=== PATIENT | male | born 1960 | race Caucasian/White ===

== ENCOUNTER → 2017-08-09 06:36 | Outpatient (CLI) | payer SELFPAY ==
--- NOTE | 2017-08-10 08:52 | PFTCOMP ---
COMPLETE PULMONARY FUNCTION TEST INTERPRETATION Brief HPI: Patient is a 57 year old male, currently under the care of Dr. Bloom, who presents to [facility] for complete pulmonary function tests secondary to diagnosis of asthma. Respiratory therapist reports good effort and reproducible results. Interpretation: Forced expiration spirometry shows a moderately-severe large airways obstructive ventilatory defect with an FEV1 of 55 % predicted. There is no significant bronchodilator response by ATS criteria. Spirograms are of good quality and plateau slowly, indicating slowly emptying areas of the lungs. The respiratory flow volume loop shows decreased expiratory flow rates at all lung volumes consistent with airway obstruction. Lung volumes by body plethysmography show a normal total lung capacity at 6.83 L, 89 % predicted. All other lung volumes are within normal limits. Diffusion capacity by carbon monoxide is normal at 104 % predicted. The airway resistance is elevated. Compared to previous pulmonary function tests from 08/11/2016, there has been a significant change in TLC, decreased by 12%. Impression: Irreversible moderately severe large airways obstructive ventilatory defect with preserved diffusion capacity in a pattern consistent with chronic bronchitis.
--- NOTE | 2017-08-10 08:55 | PFTCOMP_ITS ---
COMPLETE PULMONARY FUNCTION TEST INTERPRETATION Brief HPI: Patient is a 57 year old male, currently under the care of Dr. Bloom, who presents to [facility] for complete pulmonary function tests secondary to diagnosis of asthma. Respiratory therapist reports good effort and reproducible results. Interpretation: Forced expiration spirometry shows a moderately-severe large airways obstructive ventilatory defect with an FEV1 of 55 % predicted. There is no significant bronchodilator response by ATS criteria. Spirograms are of good quality and plateau slowly, indicating slowly emptying areas of the lungs. The respiratory flow volume loop shows decreased expiratory flow rates at all lung volumes consistent with airway obstruction. Lung volumes by body plethysmography show a normal total lung capacity at 6.83 L , 89 % predicted. All other lung volumes are within normal limits. Diffusion capacity by carbon monoxide is normal at 104 % predicted. The airway resistance is elevated. Compared to previous pulmonary function tests from 08/11/2016, there has been a significant change in TLC, decreased by 12%. Impression: Irreversible moderately severe large airways obstructive ventilatory defect with preserved diffusion capacity in a pattern consistent with chronic bronchitis.
== END ==
PROVIDERS: Family Provider Family Medicine; PCP Family Medicine; Visit Provider Nurse Practitioner Acute Care
DX: J45.909 Unspecified asthma, uncomplicated (principal)
CPT/HCPCS: 94060; 94726; 94729

== ENCOUNTER → 2019-03-27 08:27 | Outpatient (CLI) | payer OTHER, SELFPAY ==
[2018-06-27 07:06] VITALS: BMI 27.1
[2019-03-27 10:43] LABS: Absolute Lymphocyte Count 1.37 X10^3/uL (0.83-4.51); Absolute Neutrophil Count 2.7 X10^3/uL (2.0-7.7); Basophil# 0.03 X10^3/uL; Basophil% 0.6 % (0-1); Eosinophil# 0.33 X10^3/uL; Eosinophils% 6.5 % (0-5); Hematocrit 45.5 % (40-54); Hemoglobin 15.6 g/dL (13.0-16.5); Lymphocyte # 1.37 X10^3/ul (4.0); Mean Corp Hgb Conc 34.3 g/dL (32-36); Mean Corpuscular Hgb 30.6 pg (27.0-32.0); Mean Corpuscular Volume 89.4 fL (80-94); Mean Platelet Vol. 9.3 fl (6.2-12.0); Monocyte% 11.8 % (0-10); NRBC Flagged by Analyzer 0 % (0-5); Neutrophil # 2.73 X10^3/uL (2.7-7.7); Neutrophil % 53.9 % (47-70); Platelet Count 259 K/mm3 (150-450); RBC Distribution Width CV 11.5 % (11.6-14.6); RBC Distribution Width SD 37.7 fl (35.1-43.9); Red Blood Count 5.09 M/mm3 (4.6-6.2); White Blood Count 5.1 K/mm3 (4.4-11.0)
[2019-03-27 10:59] LABS: AST(SGOT) 23 U/L (15-37); Alanine Aminotransfer ALT/SGPT 37 U/L (16-61); Albumin, Serum 4.1 g/dL (3.2-5.0); Alkaline Phosphatase 84 U/L (45-117); Anion Gap 6 (5-15); BUN 15 mg/dL (7-18); BUN/Creat Ratio 14.2 RATIO (10-20); Bilirubin, Direct 0.17 mg/dL (0.00-0.30); Calcium,Total 9.3 mg/dL (8.5-10.1); Chloride 103 mmol/L (98-107); Creatinine, Serum 1.06 mg/dL (0.70-1.30); EST Glomerular Filtration Rate 76 mL/min (>60); Est Glom Filt Rate - Afr Amer 92 mL/min (>60); Globulin 3.9 g/dL (2.2-4.2); Glucose 100 mg/dL (74-106); Sodium Level 137 mmol/L (136-145)
[2019-03-27 11:46] LABS: Hepatitis B Surface Antibody Non-Reactive; Hepatitis B Surface Antigen Non-Reactive (Nonreactive); Hepatitis C Antibody Non-Reactive (Nonreactive)
[2019-03-29 20:07] LABS: QNTFERON TB Mitogen Value > 10.00 IU/mL (.); QNTFERON TB Nil Value 0.01 IU/mL (.); QNTFERON TB1+ Ag Value 0.03 IU/mL (.); QNTFERON TB2+ Ag Value 0.01 IU/mL (.)
[2019-03-29 21:18] LABS: Hepatitis B Core AB IgM Negative (Negative); QNTIFERON TB Positive Criteria Negative (Negative)
== END ==
PROVIDERS: Family Provider Family Medicine; PCP Family Medicine; Referring Provider Dermatology; Visit Provider Dermatology
DX: L40.0 Psoriasis vulgaris (principal); Z79.899 Other long term (current) drug therapy; L20.89 Other atopic dermatitis
CPT/HCPCS: 36415; 80048; 80076; 85025; 86480; 86705; 86706; 86803; 87340

== ENCOUNTER 2019-04-16 18:30 | Outpatient (RCR) | payer OTHER, SELFPAY ==
[2018-06-27 07:06] VITALS: BMI 27.1
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
--- NOTE | 2019-08-24 07:39 | HP.PTDCSUM ---
It has been my pleasure to treat EYAL RIZVI referred by Placido Lowry III, MD, with the diagnosis of COMPRESSION FRACRURE OF FIRST VERTEBRA for a total of 2 visit(s). Discharge Date: Please see the following information for a summary of their discharge status. Subjective: Patient stated back is better with ex's Bilateral Back Pain Intensity (Out of 10): 4 % Improvement: 75 Objective/Function: ROSSI TX WELL DID WELL WITH EX'S PROVIDE HANDOUT Goal 1:: Patient to be Independant with HEP Goal 2:: Patient improve posture/body mechanics for job demands. Goal 3:: Patient to decrease lumbar pain by 50% or > to improve function. Goal 4:: Patient to improve lumbar ROM for function of recovery Goal 5:: Patient to improve back owestrey score by 5 points or > to improve QOL. Goal 6:: D/C TO [facility] Plan: WILL DO EX'S ON OWN AT GYM. PT INTERVENTIONS DLS,POSTURAL EX'S,LE FLEXABLITY If there are questions or concerns regarding this patient's physical therapy, please feel free to call me at [phone]. Thank you for the referral of this patient. Sincerely, Dominick Kay, PT, Cert MDT, OCS
== END 2019-04-16 19:00 | disposition home or self-care (01) ==
LOC: PT 18:30
PROVIDERS: Family Provider Family Medicine; PCP Family Medicine; Referring Provider Family Medicine; Visit Provider Family Medicine
DX: S32.010D Wedge compression fracture of first lumbar vertebra, subsequent encounter for fracture with routine healing (principal)
CPT/HCPCS: 97110; 97162

== ENCOUNTER 2019-05-16 10:48 | Emergency (ER) | payer OTHER, SELFPAY ==
[2018-06-27 07:06] VITALS: BMI 27.1
[2019-05-16 10:50] VITALS: BP 137/98; PULSE 72; RESP 17; TEMP 36.7; O2SAT 98; BMI 28.3
--- NOTE | 2019-05-16 11:27 | ED.VISSUMM ---
- ER Visit Summary Date of Service: 05/16/19 Chief Complaint: Left thumb laceration injury History of Present Illness: The patient is a 59 M hand dominant. States his tetanus status is up-to-date. Patient was at work and a large pipe fell on his left thumb causing it to be lacerated and injured. Patient denies any other injuries. Physical Examination: Middle-aged male no acute distress vital signs stable afebrile. HEENT exam unremarkable atraumatic. Lungs clear to auscultation. Heart regular rhythm no murmur. Abdomen soft nontender. Extremities moves all 4. Neurovascular intact. Specifically left hand left thumb there is a laceration notes at least 4 cm on the dorsum of his left proximal thumb just proximal to his nail. The thumb is neurovascularly intact. He is able to do flexion extension. He has normal touch sensation distally. There is blood and small amount of actual bleeding. No gross bony deformities. The rest of the hand is nontender. Without any signs of trauma. With normal range of motion intact sensation. Test Results: Left thumb x-ray 2 views read by myself and the radiologist showing a nondisplaced fracture of the distal phalanx. Emergency Department Course and Treatment: Procedure note: Left thumb laceration. Digital block using Xylocaine. Once proper anesthetic was obtained. Wound was washed with soap and water, Shur-Clens and irrigated. It was explored. Then closed using 4-0 Ethilon simple interrupted sutures times #5. Patient tolerated procedure well. Proper hemostasis and wound closure was obtained. Patient has an open fracture will be placed on Keflex 4 times a day for 1 week. Ice and elevate. Keep clean. Sutures are open and no less than 10 no more than 14 days. Follow-up with of orthopedics. Treatment Plan: Wound care. Suture removal in 10 days. Return if any problems. Keflex 1 pill 4 times a day for 10 days. Disposition: dc Impression: Left thumb injury with 4 cm laceration with ER repair Left thumb distal phalanx open fracture Worker's Comp. injury This note was generated with [employer] dictation software. It may contain incorrect words, spelling, and punctuation that were not noted in review of the chart prior to signing ED Disposition - Plan for ED Patient: Referrals: Placido Lowry III, MD [Primary Care Provider] -
--- NOTE | 2019-05-16 11:30 | RAD_ITS ---
STUDY: X-RAY - LEFT HAND, ATTENTION LEFT THUMB. REASON FOR EXAM: Male, 59 years old. Pain following injury. TECHNIQUE: 3 view(s) of the finger were obtained. COMPARISON: None. FINDINGS: Normal metacarpal head. Normal metacarpophalangeal joint. Normal proximal phalanx. Nondisplaced, fracture of the distal phalanx. Normal distal interphalangeal joint. RAD/Finger(s) Min 2 Views IMPRESSION: Nondisplaced, fracture of the distal phalanx with overlying soft tissue injury. Electronically Signed: Phillip Swenson, at 12:12 EST , Service support ,
[2019-05-16] MEDS: Cephalexin 250 MG Capsule 500 MG PO (13:04)
--- NOTE | 2019-05-16 13:04 | ED.DEP ---
ED Disposition - Plan for ED Patient: Disposition: Home or Assisted Living Instructions: FRACTURE, Finger (Open) Prescriptions: Cephalexin [Keflex] 500 mg PO Q6 #28 cap Prescription Printed Referrals: Tonia Mckee DO [STAFF PHYSICIAN] - As soon as possible Additional Instructions: Keep thumb dry and clean. Clean daily with soap and water or peroxide and water. Apply antibiotic ointment. Stitches out in 10 to 14 days. Keep the splint on as much as possible. You have a open fracture of your left thumb you need to see an orthopedic surgeon for this and follow-up. Keflex antibiotic 1 pill 4 times a day for 7 days. Ice and elevate. Tylenol and Motrin for pain.
== END 2019-05-16 13:36 | disposition home or self-care (01) ==
PROVIDERS: Emergency Provider Emergency Medicine; Family Provider Family Medicine; PCP Family Medicine
DX: S62.525B Nondisplaced fracture of distal phalanx of left thumb, initial encounter for open fracture (principal); J45.909 Unspecified asthma, uncomplicated; F41.9 Anxiety disorder, unspecified; Z79.51 Long term (current) use of inhaled steroids; Z79.899 Other long term (current) drug therapy; W22.8XXA Striking against or struck by other objects, initial encounter; Y93.89 Activity, other specified; Y92.89 Other specified places as the place of occurrence of the external cause; Y99.0 Civilian activity done for income or pay
CPT/HCPCS: 12002; 11750; 11760; 73140; 99284

== ENCOUNTER → 2019-05-28 09:01 | Outpatient (CLI) | payer OTHER, SELFPAY ==
[2019-05-16 10:50] VITALS: BMI 28.3
--- NOTE | 2019-05-28 09:02 | RAD_ITS ---
STUDY: X-RAY - LEFT HAND, ATTENTION FIRST FINGER REASON FOR EXAM: Male, 59 years old. Follow-up of fracture of distal phalanx of first finger. TECHNIQUE: 3 view(s) of the finger were obtained. COMPARISON: None. FINDINGS: Normal metacarpal head. Normal metacarpophalangeal joint. Normal proximal phalanx. Normal middle phalanx. Comminuted minimally displaced fracture of the distal phalanx of the first digit, relatively unchanged from prior study. No complications identified. Normal proximal interphalangeal joint. Normal distal interphalangeal joint. RAD/Finger(s) Min 2 Views IMPRESSION: Stable uncomplicated distal phalangeal fracture as described. Electronically Signed: Ian Bertrand MD at 14:11 EST , Service support ,
== END ==
PROVIDERS: Family Provider Family Medicine; PCP Family Medicine; Referring Provider Orthopaedic Surgery; Visit Provider Orthopaedic Surgery
DX: S69.92XA Unspecified injury of left wrist, hand and finger(s), initial encounter (principal)
CPT/HCPCS: 73140

== ENCOUNTER → 2019-06-20 08:10 | Outpatient (CLI) | payer OTHER, SELFPAY ==
[2019-05-28 09:30] VITALS: BMI 28.3
--- NOTE | 2019-06-20 08:11 | RAD_ITS ---
STUDY: X-RAY - LEFT HAND, ATTENTION FIRST FINGER REASON FOR EXAM: Male, 59 years old. FX, PAIN TECHNIQUE: 3 view(s) of the finger were obtained. COMPARISON: None. FINDINGS: Comminuted fractures of the first distal phalanx. No distracted fragments or angulation. Grossly normal bone contour. Mild degenerative changes of the first interphalangeal and metacarpophalangeal joints. Diffuse soft tissue swelling. RAD/Finger(s) Min 2 Views IMPRESSION: Comminuted nondisplaced fractures of the entire distal phalanx of the thumb. Electronically Signed: Jhony Jamison MD at 19:39 EST , Service support ,
== END ==
PROVIDERS: Family Provider Family Medicine; PCP Family Medicine; Referring Provider Orthopaedic Surgery; Visit Provider Orthopaedic Surgery
DX: S69.92XA Unspecified injury of left wrist, hand and finger(s), initial encounter (principal)
CPT/HCPCS: 73140

== ENCOUNTER → 2020-12-24 08:25 | Outpatient (CLI) | payer BC, SELFPAY ==
[2019-06-20 08:25] VITALS: BMI 28.3
[2020-12-24 10:16] LABS: Absolute Lymphocyte Count 1.37 X10^3/uL (0.83-4.51); Absolute Neutrophil Count 2.2 X10^3/uL (2.0-7.7); Basophil# 0.03 X10^3/uL; Basophil% 0.7 % (0-1); Eosinophil# 0.32 X10^3/uL; Eosinophils% 7.1 % (0-5); Hematocrit 41.5 % (40-54); Lymphocyte # 1.37 X10^3/ul (0.83-4.51); Lymphocyte % 30.6 % (19-41); Mean Corp Hgb Conc 33.7 g/dL (32-36); Mean Corpuscular Hgb 30.7 pg (27.0-32.0); Mean Platelet Vol. 9.3 fl (6.2-12.0); Monocyte# 0.56 X10^3/uL; Monocyte% 12.5 % (0-10); NRBC Flagged by Analyzer 0 % (0-5); Neutrophil # 2.19 X10^3/uL (2.7-7.7); Neutrophil % 48.9 % (47-70); Platelet Count 265 K/mm3 (150-450); RBC Distribution Width CV 12.3 % (11.6-14.6); RBC Distribution Width SD 41.1 fl (35.1-43.9); Red Blood Count 4.56 M/mm3 (4.6-6.2); White Blood Count 4.5 K/mm3 (4.4-11.0)
[2020-12-24 10:51] LABS: Anion Gap 5 (5-15); BUN 16 mg/dL (7-18); Calcium,Total 8.9 mg/dL (8.5-10.1); Chloride 104 mmol/L (98-107); EST Glomerular Filtration Rate 81 mL/min (>60); Est Glom Filt Rate - Afr Amer 98 mL/min (>60); Glucose 103 mg/dL (74-106); Potassium 4.3 mmol/L (3.5-5.1); Sodium Level 138 mmol/L (136-145)
[2020-12-27 20:07] LABS: QNTFERON TB Mitogen Value > 10.00 IU/mL (.); QNTFERON TB Nil Value 0.01 IU/mL (.); QNTFERON TB1+ Ag Value 0.03 IU/mL (.); QNTFERON TB2+ Ag Value 0.02 IU/mL (.)
[2020-12-28 08:05] LABS: QNTIFERON TB Positive Criteria Negative (Negative)
== END ==
PROVIDERS: PCP Family Medicine; Referring Provider Dermatology; Visit Provider Dermatology
DX: L40.0 Psoriasis vulgaris (principal); Z79.899 Other long term (current) drug therapy
CPT/HCPCS: 36415; 80048; 85025; 86480

== ENCOUNTER → 2023-03-08 | Outpatient (CLI) | payer BC, SELFPAY ==
[2023-03-08 10:07] LABS: Absolute Lymphocyte Count 1.92 X10^3/uL (0.83-4.51); Absolute Neutrophil Count 1.9 X10^3/uL (2.0-7.7); Basophil# 0.03 X10^3/uL; Basophil% 0.7 % (0-1); Eosinophil# 0.23 X10^3/uL; Hematocrit 40.8 % (40-54); Hemoglobin 13.8 g/dL (13.0-16.5); Lymphocyte # 1.92 X10^3/ul (0.83-4.51); Lymphocyte % 41.7 % (19-41); Mean Corp Hgb Conc 33.8 g/dL (32-36); Mean Corpuscular Hgb 30.9 pg (27.0-32.0); Mean Corpuscular Volume 91.5 fL (80-94); Mean Platelet Vol. 9.6 fl (6.2-12.0); Monocyte# 0.53 X10^3/uL; Monocyte% 11.5 % (0-10); NRBC Flagged by Analyzer 0 % (0-5); Neutrophil # 1.87 X10^3/uL (2.7-7.7); Neutrophil % 40.7 % (47-70); Platelet Count 276 K/mm3 (150-450); RBC Distribution Width CV 12.2 % (11.6-14.6); RBC Distribution Width SD 40.8 fl (35.1-43.9); Red Blood Count 4.46 M/mm3 (4.6-6.2); White Blood Count 4.6 K/mm3 (4.4-11.0)
[2023-03-08 10:42] LABS: AST(SGOT) 18 U/L (15-37); Alanine Aminotransfer ALT/SGPT 30 U/L (16-61); Albumin, Serum 3.9 g/dL (3.2-5.0); Alkaline Phosphatase 62 U/L (45-117); Anion Gap 3 (5-15); BUN 18 mg/dL (7-18); BUN/Creat Ratio 18.3 RATIO (10-20); Bilirubin, Direct 0.14 mg/dL (0.00-0.30); Calcium,Total 8.8 mg/dL (8.5-10.1); Chloride 103 mmol/L (98-107); Cholesterol 235 mg/dL (200); Creatinine, Serum 0.98 mg/dL (0.70-1.30); EST Glomerular Filtration Rate 82 mL/min (>60); Est Glom Filt Rate - Afr Amer 99 mL/min (>60); Globulin 3.3 g/dL (2.2-4.2); Glucose 104 mg/dL (74-106); High Density Lipoprotein 65 mg/dL; Potassium 4.3 mmol/L (3.5-5.1); Protein, Total 7.2 g/dL (6.4-8.2); Sodium Level 136 mmol/L (136-145); Triglycerides 130 mg/dL; Very Low Density Lipoprotein 26 mg/dL (5-40)
[2023-03-08 11:23] LABS: Hepatitis C Antibody Non-Reactive (Nonreactive)
== END | disposition home or self-care (01) ==
LOC: MTLAB 07:03
PROVIDERS: PCP Family Medicine; Referring Provider Dermatology; Visit Provider Dermatology
DX: L20.89 Other atopic dermatitis (principal); Z79.899 Other long term (current) drug therapy
CPT/HCPCS: 36415; 80048; 80061; 80076; 85025; 86803

== ENCOUNTER → 2025-04-16 | Outpatient (CLI) | payer SELFPAY ==
[2025-04-18 18:08] LABS: QNTFERON TB Mitogen Value > 10.00 IU/mL (.); QNTFERON TB Nil Value 0.03 IU/mL (.); QNTFERON TB1+ Ag Value 0.02 IU/mL (.); QNTFERON TB2+ Ag Value 0.04 IU/mL (.); QNTIFERON TB Positive Criteria Negative (Negative)
== END | disposition home or self-care (01) ==
PROVIDERS: PCP Family Medicine; Referring Provider Dermatology; Visit Provider Dermatology
DX: L20.89 Other atopic dermatitis (principal)
CPT/HCPCS: 36415; 86480